=== PATIENT | female | born 1945 | race Caucasian/White ===

== ENCOUNTER 2020-10-26 17:47 | Inpatient (IN) | payer MEDICARE, SELFPAY ==
[2020-10-26 18:53] VITALS: BP 146/67; PULSE 69; TEMP 37.2; O2SAT 97
[2020-10-26 19:28] VITALS: BMI 21.9
--- NOTE | 2020-10-26 22:06 | PC.ADMIT ---
PT arrived to unit for first time by stretcher at 1800 from [facility] for [facility] using meds and disorganization. PT is A+O to self and place only. Medications and orders confirmed by AVELINA Mata. PT signed all legals and is Conditional Voluntary on 15 minute checks. PT calm and cooperative during admission assessment, poor memory at times. PT has large bruising to left side of face, stated, I fell down the wooden stairs at [employer]. PT oriented to staff and unit. PT is on antibiotic for UTI starting now. Also NO order to obtain another Urine for U/A.
[2020-10-26 22:32] VITALS: BP 112/56; PULSE 70
[2020-10-26] MEDS: Metoprolol Tartrate 25 MG TABLET PO (22:32)
[2020-10-26] MEDS: cephALEXin 500 MG CAPSULE PO (22:37)
[2020-10-26] MEDS: traZODone HCL 50 MG TABLET PO (22:37)
[2020-10-26] MEDS: Acetaminophen 325 MG TABLET 650 MG PO (22:38)
[2020-10-27] MEDS: Levothyroxine Sodium 50 MCG TABLET PO (05:57)
[2020-10-27 06:00] VITALS: BP 142/65; PULSE 74; RESP 16; TEMP 35; O2SAT 95
[2020-10-27 07:28] LABS: Cholesterol 141 mg/dL; HDL Cholesterol 37 mg/dL; LDL Cholesterol Calculated 85 mg/dl; Triglycerides 97 mg/dL
[2020-10-27 07:39] LABS: Estimated Average Glucose 100 mg/dL; Hemoglobin A1c % 5.1 %
[2020-10-27 07:42] LABS: Thyroid Stimulating Hormone 2.81 uIU/mL (0.32-4.0)
[2020-10-27 07:58] VITALS: BP 131/60; PULSE 72; RESP 16; TEMP 36.9; O2SAT 98
[2020-10-27 09:36] VITALS: BP 131/60; PULSE 72
[2020-10-27] MEDS: Aspirin Enteric Coated 81 MG TABLET.DR PO (09:36)
[2020-10-27] MEDS: Metoprolol Tartrate 25 MG TABLET PO ×2 (09:36→21:19)
[2020-10-27] MEDS: cephALEXin 500 MG CAPSULE PO ×4 (09:36→21:19)
[2020-10-27 10:12] LABS: Folate 5.1 ng/mL (> or = 4.0); Vitamin B12 < 146 pg/mL (200-900)
[2020-10-27 10:47] VITALS: BP 162/74; PULSE 57; O2SAT 97
--- NOTE | 2020-10-27 14:53 | HO.PSYADMNOT ---
HPI Chief Complaint: Adjustment disorder w/ mixed disturbance of emotio Sources of Information: patient interviewed, chart reviewed and crisis/core team assessment reviewed HPI Subjective Notes: Conditional Voluntary Narrative: The patient is a 75 year old female, , mother of 2 adult children, living with her with good social support. The patient was brought to the ED [facility] by the police and her . Apparently, she has been taking OTC and prescription medications, also the reported that she made suicidal statements and she was been more irritable and more disorganized. The patient suffers from dementia but recently, she has been more erratic, wandering and knocking on other's people homes and she had psychotic symptoms elicited by paranoia (people breaking into her home). During the intake interview, she couldn't remember why she was admitted. On the ED, she was found to have an UTI. She denied suicidal thoughts. She had an injury in her face, apparently, she fell several days ago. Past Psychiatric History: Denies prior psychiatric treatment. Medical Evaluation Reviewed: Yes PMF Family History: Denies Social History: The patient has been for more than 50 years, she has 2 adult children, lives with her who is her primary support system Substance History: Denies Trauma History: Denies Diagnostics Vital Signs (24Hr): Vital Signs - 24 hr 10/26/20 18:53 10/26/20 22:32 10/27/20 06:00 Temperature 99 F 95 F L Pulse Rate 69 70 74 Respiratory Rate 16 Blood Pressure 146/67 H 112/56 L 142/65 H Pulse Oximetry 97 95 10/27/20 07:58 10/27/20 09:36 10/27/20 10:47 Temperature 98.5 F Pulse Rate 72 72 57 Respiratory Rate 16 Blood Pressure 131/60 131/60 162/74 H Pulse Oximetry 98 97 Body Mass Index 21.9 Labs Labs: Laboratory Results - last 48 hr 10/27/20 10/27/20 10/27/20 06:40 06:40 06:40 Estimat Average Glucose 100 Hemoglobin A1c % 5.1 Triglycerides 97 Cholesterol 141 LDL Cholesterol, Calc 85 HDL Cholesterol 37 Vitamin B12 < 146 L Folate 5.1 TSH 2.81 Meds/Allergies Meds Home Medications Acetaminophen (Acetaminophen 325 Mg Tablet) 650 mg PO Q6H PRN PRN Reason: Headache/Pain Mild Scale (1-3) Last Admin: 10/26/20 22:38 Dose: 650 mg Documented by: Al Hydroxide/Mg Hydroxide (Magnesium Hydrox/Alum Hydrox 30 Ml Oral.Susp) 30 ml PO Q6H PRN PRN Reason: Heartburn/Nausea Aspirin (Aspirin Enteric Coated 81 Mg Tablet.Dr) 81 mg PO DAILY [facility] Last Admin: 10/28/20 08:00 Dose: 81 mg Documented by: Cephalexin HCl (Cephalexin 500 Mg Capsule) 500 mg PO QID [facility] Stop: 10/31/20 20:59 Last Admin: 10/28/20 13:44 Dose: 500 mg Documented by: Cyanocobalamin (Cyanocobalamin (Vitamin B-12) 1,000 Mcg Tablet) 1,000 mcg PO DAILY [facility] Last Admin: 10/28/20 08:01 Dose: 1,000 mcg Documented by: Hydroxyzine HCl (Hydroxyzine Hcl 25 Mg Tablet) 25 mg PO BEDTIME PRN PRN Reason: Anxiety Last Admin: 10/28/20 08:00 Dose: 25 mg Documented by: Levothyroxine Sodium (Levothyroxine Sodium 50 Mcg Tablet) 50 mcg PO DAILY@0600 [facility] Last Admin: 10/28/20 08:00 Dose: 50 mcg Documented by: Magnesium Hydroxide (Milk Of Magnesia 30 Ml Oral.Susp) 30 ml PO DAILY PRN PRN Reason: Constipation Metoprolol Tartrate (Metoprolol Tartrate 25 Mg Tablet) 25 mg PO BID [facility]; Protocol Last Admin: 10/28/20 08:00 Dose: 25 mg Documented by: Trazodone HCl (Trazodone Hcl 50 Mg Tablet) 50 mg PO BEDTIME PRN PRN Reason: Insomnia Last Admin: 10/26/20 22:37 Dose: 50 mg Documented by: Allergies Allergies Allergy/AdvReac Type Severity Reaction Status Date / Time No Known Allergies Allergy Verified 10/26/20 19:36 Mental Status Exam Mental Status Exam Patient Appearance: Disheveled Patient Orientation: Person Level of Consciousness: Awake Patient Behavior: Cooperative and Wandering Mood Description: Withdrawn and Depressed Affect Description: Constricted Patient Cognition Impaired: Yes Ability to Follow Directions: Good Speech Pattern: Clear Memory Description: Immediate Impaired Hallucinations: None Delusions: Paranoid Ideation Thought Process: Distracted, Evasive and Slowed Thinking Thought Content: positive for Circumstantial and positive for Poverty of Content Depressive Symptoms: Increased Anxiety Judgement: Poor Assessment & Plan Assessment & Plan (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 Plan: Gather collateral information. Continue with the same treatment. (2) Dementia associated with other underlying disease without behavioral disturbance: Status: Acute Code(s): F02.80 - Dementia in other diseases classified elsewhere without behavioral disturbance Patient educated on: diagnosis and medication risk/benefits Informed Consent: does not understand Reason for continued inpatient stay Substantial Risk for: harm to self, inability to function, rapid decompensation and med/psych decompensation
--- NOTE | 2020-10-27 14:56 | PM.IMCN ---
History of Present Illness Data of Consult Service Date: 10/27/20 Requesting physician: Tripp Roth Primary Care Provider: Unknown Physician HPI Reason for consult: Admission H&P This is a 75 yo F admitted to the [facility] unit. Medical services consulted for routine admission H&P Pt is seen and examined in her bed. [facility] staff in the room. Patient is a pleasant 75 yo F who denies any medical complaints and denies any medical history. Of note, patient has bruising on the L side of her her face, which she endorses is a few weeks old. She reported that she sustained a mechanical fall without any LOC. She denies any PMH, PSH or FH Review of Systems Review of Systems: denies any medical complaints PMFSH Social History Household Members: Spouse Housing: House Do you presently have visiting nurse or other home services: No Patient Tobacco Use Status: Never used Tobacco Smoked in Last 30 Days: No e-Cigarette/Vaping Use: Never Used Patient Interested in Nicotine Replacement: No Patient Given Instructions on How to Stop Smoking: No Second Hand Smoke Exposure: No Use of substances other than those prescribed or required for medical reasons: No Currently Displaying Signs/Symptoms of Drug Intoxication Withdrawal: No Any prior treatment program specific to substance use: No Have you been hit, kicked, punched, or otherwise hurt by someone within the past year? If so, by whom?: No Do you feel safe in your current relationship?: Yes Is there a partner from a previous relationship who is making you feel unsafe now?: No Are you made to feel afraid or neglected: No Rastafarian Healthcare Practices: Quaker Advance Directives: No Advance Directives Information Provided: Yes Do you have thoughts of harming others: None Do you have a plan to hurt others: No Plan Recently lost weight without trying: No How much weight loss: Not applicable Eating poorly because of decreased appetite: Yes Nutrition screen score: 1 Nutrition Risks: No Nutritional Risk Patient : No : No Poor oral hygiene: No service: No Sexual orientation: Straight/Heterosexual Meds Allergies Allergy/AdvReac Type Severity Reaction Status Date / Time No Known Allergies Allergy Verified 10/26/20 19:36 Active Medications: Current Medications Generic Name Dose Route Start Last Admin Trade Name Freq PRN Reason Stop Dose Admin Acetaminophen 650 mg 10/26/20 20:10 06/23/21 22:38 Acetaminophen 325 Mg Tablet PO 650 mg Q6H PRN Administration Headache/Pain Mild Scale (1-3) Al Hydroxide/Mg Hydroxide 30 ml 10/26/20 20:10 Magnesium Hydrox/Alum Hydrox 30 Ml Oral.Susp PO Q6H PRN Heartburn/Nausea Aspirin 81 mg 10/27/20 09:00 10/27/20 09:36 Aspirin Enteric Coated 81 Mg Tablet.Dr PO 81 mg DAILY [facility] Administration Cephalexin HCl 500 mg 10/26/20 21:00 10/27/20 13:26 Cephalexin 500 Mg Capsule PO 10/31/20 20:59 500 mg QID [facility] Administration Hydroxyzine HCl 25 mg 10/26/20 20:10 Hydroxyzine Hcl 25 Mg Tablet PO BEDTIME PRN Anxiety Levothyroxine Sodium 50 mcg 10/27/20 06:00 10/27/20 05:57 Levothyroxine Sodium 50 Mcg Tablet PO 50 mcg DAILY@0600 [facility] Administration Magnesium Hydroxide 30 ml 10/26/20 20:10 Milk Of Magnesia 30 Ml Oral.Susp PO DAILY PRN Constipation Metoprolol Tartrate 25 mg 10/26/20 21:00 10/27/20 09:36 Metoprolol Tartrate 25 Mg Tablet PO 25 mg BID [facility] Administration Protocol Trazodone HCl 50 mg 10/26/20 20:10 10/26/20 22:37 Trazodone Hcl 50 Mg Tablet PO 50 mg BEDTIME PRN Administration Insomnia Physical Exam Vital Signs and Narrative: Vital Signs: Last Vital Signs Temp 98.5 F 10/27/20 07:58 Pulse 57 10/27/20 10:47 Resp 16 10/27/20 07:58 BP 162/74 H 10/27/20 10:47 Pulse Ox 97 10/27/20 10:47 Body Mass Index 21.9 Const: Other: General - no acute distress, appears comfortable Cardiovascular - regular rate and rhythm, S1-S2 Lungs - normal respiratory effort, clear to auscultation bilaterally, no wheezing Abdomen - soft, nontender, no rebound or guarding Extremities - no edema bilaterally Neuro - awake and alert, no focal deficits SKin - bruising in different stages on L-side face, no bony tenderness Results Labs Labs: Laboratory Results - last 24 hr 10/27/20 10/27/20 10/27/20 06:40 06:40 06:40 Estimat Average Glucose 100 Hemoglobin A1c % 5.1 Triglycerides 97 Cholesterol 141 LDL Cholesterol, Calc 85 HDL Cholesterol 37 Vitamin B12 < 146 L Folate 5.1 TSH 2.81 Assessment and Plan (1) Routine medical exam: Status: Acute (2) Patient denies medical problems: Status: Acute This is a 75 yo F who endorses no significant PMH. She is admitted to the [facility] unit. She endorses no chronic medical issues. Of note, she does have a low B12 level. Will replete with oral. Additionally she does have variable blood pressures. At this time, would observe BP trend and if persistantly over 140-150/90, may consider initiation of antihypertensives. Please reconsult if needed.
[2020-10-27 15:05] VITALS: BMI 25.1
[2020-10-27 19:09] LABS: Amphetamine Screen Urine Not Detected (Not Detect); Barbiturates, Urine Not Detected (Not Detect); Benzodiazepines Screen Urine Not Detected (Not Detect); Cannabinoid Screen Urine Not Detected (Not Detect); Cocaine Screen Urine Not Detected (Not Detect); Opiate Screen Urine Not Detected (Not Detect); Phencyclidine Screen Urine Not Detected (Not Detect)
[2020-10-27 19:49] VITALS: BP 133/60; PULSE 71; RESP 16; TEMP 36.4; O2SAT 93
[2020-10-27 21:19] VITALS: BP 117/60; PULSE 96
[2020-10-27] MEDS: hydrOXYzine HCL 25 MG TABLET PO (21:19)
[2020-10-28] MEDS: Metoprolol Tartrate 25 MG TABLET PO ×2 (08:00→21:44)
[2020-10-28] MEDS: hydrOXYzine HCL 25 MG TABLET PO (08:00)
[2020-10-28] MEDS: Aspirin Enteric Coated 81 MG TABLET.DR PO (08:00)
[2020-10-28] MEDS: Levothyroxine Sodium 50 MCG TABLET PO (08:00)
[2020-10-28] MEDS: cephALEXin 500 MG CAPSULE PO ×4 (08:01→21:44)
[2020-10-28] MEDS: Cyanocobalamin (Vitamin B-12) 1,000 MCG TABLET 1000 MCG PO (08:01)
--- NOTE | 2020-10-28 13:49 | HO.PSYCHPN ---
Subjective Subjective Date of Service: 10/28/20 Reason For Visit: Adjustment disorder w/ mixed disturbance of emotio Subjective Notes: Conditional Voluntary Interim History: The patient remains most of the time in her room, she denies paranoia or auditory hallucinations. On bloodwork, she came back with a low level of Vitamin B12 and it was started treatment; also her last U/A was negative. She looks pleasantly confused. Medication Compliance: Yes Side effects from medications: No Review of Systems Acute medical concerns: No Medical Review of Systems: unchanged Mental Status Exam Mental Status Exam Patient Appearance: Disheveled and Unkempt Patient Orientation: Person and Situation Level of Consciousness: Awake Patient Behavior: Cooperative, Distractible and Confused Mood Description: Withdrawn Affect Description: Labile Patient Cognition Impaired: Yes Ability to Follow Directions: Good Speech Pattern: Clear Memory Description: Immediate Impaired Hallucinations: None Delusions: Paranoid Ideation Thought Process: Distracted and Evasive Thought Content: positive for Poverty of Content and positive for Loose Associations Judgement: Poor Diagnostics Vital Signs (24Hr): Vital Signs - 24 hr 10/27/20 19:49 10/27/20 21:19 Temperature 97.6 F Pulse Rate 71 96 Respiratory Rate 16 Blood Pressure 133/60 117/60 Pulse Oximetry 93 Body Mass Index 25.1 Labs Labs: Laboratory Results - last 48 hr 10/27/20 10/27/20 10/27/20 06:40 06:40 06:40 Estimat Average Glucose 100 Hemoglobin A1c % 5.1 Triglycerides 97 Cholesterol 141 LDL Cholesterol, Calc 85 HDL Cholesterol 37 Vitamin B12 < 146 L Folate 5.1 TSH 2.81 Urine Opiates Screen Ur Barbiturates Screen Ur Phencyclidine Scrn Ur Amphetamines Screen U Benzodiazepines Scrn Urine Cocaine Screen U Marijuana (THC) Screen 10/27/20 09:31 Estimat Average Glucose Hemoglobin A1c % Triglycerides Cholesterol LDL Cholesterol, Calc HDL Cholesterol Vitamin B12 Folate TSH Urine Opiates Screen Not Detected Ur Barbiturates Screen Not Detected Ur Phencyclidine Scrn Not Detected Ur Amphetamines Screen Not Detected U Benzodiazepines Scrn Not Detected Urine Cocaine Screen Not Detected U Marijuana (THC) Screen Not Detected Medications Medications Current Medications Generic Name Dose Route Start Last Admin Trade Name Freq PRN Reason Stop Dose Admin Acetaminophen 650 mg 10/26/20 20:10 10/26/20 22:38 Acetaminophen 325 Mg Tablet PO 650 mg Q6H PRN Administration Headache/Pain Mild Scale (1-3) Al Hydroxide/Mg Hydroxide 30 ml 10/26/20 20:10 Magnesium Hydrox/Alum Hydrox 30 Ml Oral.Susp PO Q6H PRN Heartburn/Nausea Aspirin 81 mg 10/27/20 09:00 10/28/20 08:00 Aspirin Enteric Coated 81 Mg Tablet.Dr PO 81 mg DAILY [facility] Administration Cephalexin HCl 500 mg 10/26/20 21:00 10/28/20 13:44 Cephalexin 500 Mg Capsule PO 10/31/20 20:59 500 mg QID [facility] Administration Cyanocobalamin 1,000 mcg 10/28/20 09:00 10/28/20 08:01 Cyanocobalamin (Vitamin B-12) 1,000 Mcg Tablet PO 1,000 mcg DAILY [facility] Administration Hydroxyzine HCl 25 mg 10/26/20 20:10 10/28/20 08:00 Hydroxyzine Hcl 25 Mg Tablet PO 25 mg BEDTIME PRN Administration Anxiety Levothyroxine Sodium 50 mcg 10/27/20 06:00 10/28/20 08:00 Levothyroxine Sodium 50 Mcg Tablet PO 50 mcg DAILY@0600 [facility] Administration Magnesium Hydroxide 30 ml 10/26/20 20:10 Milk Of Magnesia 30 Ml Oral.Susp PO DAILY PRN Constipation Metoprolol Tartrate 25 mg 10/26/20 21:00 10/28/20 08:00 Metoprolol Tartrate 25 Mg Tablet PO 25 mg BID [facility] Administration Protocol Trazodone HCl 50 mg 10/26/20 20:10 10/26/20 22:37 Trazodone Hcl 50 Mg Tablet PO 50 mg BEDTIME PRN Administration Insomnia Allergies Allergies Allergy/AdvReac Type Severity Reaction Status Date / Time No Known Allergies Allergy Verified 10/26/20 19:36 Assessment & Plan Assessment & Plan (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 Plan: Gather collateral information. Continue with the same treatment. (2) Dementia associated with other underlying disease with behavioral disturbance: Status: Acute Code(s): F02.81 - Dementia in other diseases classified elsewhere with behavioral disturbance Assessment and Plan: Plan: Add Aricept 5 mg po qhs Continue Vitamin B12 Greater than 50% of the session was spent on counseling and/or coordination of care Reason for contiued inpatient stay Substantial Risk for: inability to function, rapid decompensation and med/psych decompensation
[2020-10-28 21:44] VITALS: BP 135/76; PULSE 76
[2020-10-28] MEDS: Donepezil HCl 5 MG TABLET PO (21:45)
[2020-10-29 06:00] VITALS: BP 111/59; PULSE 64; RESP 16; TEMP 36.6; O2SAT 97
[2020-10-29] MEDS: Levothyroxine Sodium 50 MCG TABLET PO (06:34)
[2020-10-29 08:27] VITALS: BP 111/59; PULSE 64
[2020-10-29] MEDS: Aspirin Enteric Coated 81 MG TABLET.DR PO (08:27)
[2020-10-29] MEDS: Metoprolol Tartrate 25 MG TABLET PO ×2 (08:27→20:35)
[2020-10-29] MEDS: Cyanocobalamin (Vitamin B-12) 1,000 MCG TABLET 1000 MCG PO (08:27)
[2020-10-29] MEDS: cephALEXin 500 MG CAPSULE PO ×3 (08:27→17:55)
--- NOTE | 2020-10-29 12:06 | P.PNPSI_ITS ---
Subjective Subjective Date of Service: 10/30/20 Reason For Visit: Adjustment disorder w/ mixed disturbance of emotio Interim History: Pt describes mood as horrible. She reports her trying to take her house away from her, She also reports she has been working all along, which is not the case. She was confused as to her maiden last name as she reported her family are from [place]. Later she was able to tell this leader writer that this is her name. Pt perseverates on going home today. She denies SI but states her life is upside down. Not oriented to year, place, month or situation.No behavioral concerns. She does need a lot of prompting to complete ADLs and eat as she would not initiate these activities on her own due to cognitive impairments. Review of Systems Review of Systems denies any medical complaints Yes all other systems are reviewed and are negative Mental Status Exam Mental Status Exam Narrative: Appearance: brusies on face, casually groomed, poor hygiene, in NAD Behavior: frustrated Psychomotor: no agitation or retardation noted Speech: clear, normal rate/rhythm/volume, spontaneous TP: derailment noted TC: thinking her trying to take home away from her Mood: horrible Affect:anxious, confused SI:passive no plan or intent HI:none AH/VH:none Delusions:suspicious about but this may be due to memory problems more than psychosis Insight/judgment:impaired x 2. Memory/cog: alert, Not oriented to month, year, place nor situation. severely impaired but not formally tested. Diagnostics Vital Signs (24Hr): Vital Signs - 24 hr 10/29/20 17:48 10/29/20 20:35 10/30/20 06:00 Temperature 98.0 F 97.9 F Pulse Rate 69 66 58 Respiratory Rate 18 Blood Pressure 130/58 L 153/70 H 137/64 Pulse Oximetry 96 96 Body Mass Index 25.1 Medications Medications Current Medications Generic Name Dose Route Start Last Admin Trade Name Freq PRN Reason Stop Dose Admin Acetaminophen 650 mg 10/26/20 20:10 10/30/20 03:44 Acetaminophen 325 Mg Tablet PO 650 mg Q6H PRN Administration Headache/Pain Mild Scale (1-3) Al Hydroxide/Mg Hydroxide 30 ml 10/26/20 20:10 Magnesium Hydrox/Alum Hydrox 30 Ml Oral.Susp PO Q6H PRN Heartburn/Nausea Aspirin 81 mg 10/27/20 09:00 10/30/20 08:22 Aspirin Enteric Coated 81 Mg Tablet.Dr PO 81 mg DAILY [facility] Administration Cephalexin HCl 500 mg 10/26/20 21:00 10/30/20 10:27 Cephalexin 500 Mg Capsule PO 10/31/20 20:59 Not Given QID [facility] Cyanocobalamin 1,000 mcg 10/28/20 09:00 10/30/20 08:22 Cyanocobalamin (Vitamin B-12) 1,000 Mcg Tablet PO 1,000 mcg DAILY [facility] Administration Donepezil HCl 5 mg 10/28/20 21:00 10/29/20 20:35 Donepezil Hcl 5 Mg Tablet PO 5 mg BEDTIME [facility] Administration Hydroxyzine HCl 25 mg 10/26/20 20:10 10/28/20 08:00 Hydroxyzine Hcl 25 Mg Tablet PO 25 mg BEDTIME PRN Administration Anxiety Levothyroxine Sodium 50 mcg 10/27/20 06:00 10/30/20 05:40 Levothyroxine Sodium 50 Mcg Tablet PO 50 mcg DAILY@0600 [facility] Administration Magnesium Hydroxide 30 ml 10/26/20 20:10 Milk Of Magnesia 30 Ml Oral.Susp PO DAILY PRN Constipation Metoprolol Tartrate 25 mg 10/26/20 21:00 10/30/20 08:22 Metoprolol Tartrate 25 Mg Tablet PO 25 mg BID [facility] Administration Protocol Trazodone HCl 50 mg 10/26/20 20:10 10/26/20 22:37 Trazodone Hcl 50 Mg Tablet PO 50 mg BEDTIME PRN Administration Insomnia Allergies Allergies Allergy/AdvReac Type Severity Reaction Status Date / Time No Known Allergies Allergy Verified 10/26/20 19:36 Assessment & Plan Assessment & Plan (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 Plan: Gather collateral information. Continue with the same treatment. (2) Dementia associated with other underlying disease with behavioral disturbance: Status: Acute Code(s): F02.81 - Dementia in other diseases classified elsewhere with behavioral disturbance Assessment and Plan: Plan: continue per treatment team Add Aricept 5 mg po qhs Continue Vitamin B12 Greater than 50% of the session was spent on counseling and/or coordination of care Reason for contiued inpatient stay Substantial Risk for: inability to function
[2020-10-29 17:48] VITALS: BP 130/58; PULSE 69; TEMP 36.7; O2SAT 96
--- NOTE | 2020-10-29 18:19 | PC.NURSE ---
Patient had wound consult for toenail on L foot which was falling off. Nail is off and wound bed is dry. Skin intact. Patient refused dressing to be put on as ordered.
[2020-10-29 20:35] VITALS: BP 153/70; PULSE 66
[2020-10-29] MEDS: Donepezil HCl 5 MG TABLET PO (20:35)
[2020-10-30] MEDS: Acetaminophen 325 MG TABLET 650 MG PO (03:44)
[2020-10-30] MEDS: Levothyroxine Sodium 50 MCG TABLET PO (05:40)
[2020-10-30 06:00] VITALS: BP 137/64; PULSE 58; RESP 18; TEMP 36.6; O2SAT 96
[2020-10-30] MEDS: Aspirin Enteric Coated 81 MG TABLET.DR PO (08:22)
[2020-10-30] MEDS: Metoprolol Tartrate 25 MG TABLET PO ×2 (08:22→19:49)
[2020-10-30] MEDS: Cyanocobalamin (Vitamin B-12) 1,000 MCG TABLET 1000 MCG PO (08:22)
--- NOTE | 2020-10-30 12:11 | P.PNPSI_ITS ---
Subjective Subjective Date of Service: 10/30/20 Reason For Visit: Adjustment disorder w/ mixed disturbance of emotio Interim History: Pt reports feeling frustrated, continues to report that her trying to take her house away from her. She also reports she has been working all along, which is not the case. Pt tells this curriculum writer that she is going home today- that plans to walk to [place], does not know where she is but states that's okay I can walk, I am willing to walk . She denies SI but states her life is upside down. Not oriented to year, place, month or situation.No behavioral concerns. She does need a lot of prompting to complete ADLs and eat as she would not initiate these activities on her own due to cognitive impairments. Review of Systems Review of Systems denies any medical complaints Yes all other systems are reviewed and are negative Mental Status Exam Mental Status Exam Narrative: Appearance: brusies on face, casually groomed, poor hygiene, in NAD Behavior: frustrated Psychomotor: no agitation or retardation noted Speech: clear, normal rate/rhythm/volume, spontaneous TP: derailment noted TC: thinking her trying to take home away from her Mood: horrible Affect:anxious, confused SI:passive no plan or intent HI:none AH/VH:none Delusions:suspicious about but this may be due to memory problems more than psychosis Insight/judgment:impaired x 2. Memory/cog: alert, Not oriented to month, year, place nor situation. severely impaired but not formally tested. Diagnostics Vital Signs (24Hr): Vital Signs - 24 hr 10/29/20 17:48 10/29/20 20:35 10/30/20 06:00 Temperature 98.0 F 97.9 F Pulse Rate 69 66 58 Respiratory Rate 18 Blood Pressure 130/58 L 153/70 H 137/64 Pulse Oximetry 96 96 Body Mass Index 25.1 Medications Medications Current Medications Generic Name Dose Route Start Last Admin Trade Name Freq PRN Reason Stop Dose Admin Acetaminophen 650 mg 10/26/20 20:10 10/30/20 03:44 Acetaminophen 325 Mg Tablet PO 650 mg Q6H PRN Administration Headache/Pain Mild Scale (1-3) Al Hydroxide/Mg Hydroxide 30 ml 10/26/20 20:10 Magnesium Hydrox/Alum Hydrox 30 Ml Oral.Susp PO Q6H PRN Heartburn/Nausea Aspirin 81 mg 10/27/20 09:00 10/30/20 08:22 Aspirin Enteric Coated 81 Mg Tablet.Dr PO 81 mg DAILY SILAS Administration Cephalexin HCl 500 mg 10/26/20 21:00 10/30/20 10:27 Cephalexin 500 Mg Capsule PO 10/31/20 20:59 Not Given QID SILAS Cyanocobalamin 1,000 mcg 10/28/20 09:00 10/30/20 08:22 Cyanocobalamin (Vitamin B-12) 1,000 Mcg Tablet PO 1,000 mcg DAILY SILAS Administration Donepezil HCl 5 mg 10/28/20 21:00 10/29/20 20:35 Donepezil Hcl 5 Mg Tablet PO 5 mg BEDTIME SLIAS Administration Hydroxyzine HCl 25 mg 10/26/20 20:10 10/28/20 08:00 Hydroxyzine Hcl 25 Mg Tablet PO 25 mg BEDTIME PRN Administration Anxiety Levothyroxine Sodium 50 mcg 10/27/20 06:00 10/30/20 05:40 Levothyroxine Sodium 50 Mcg Tablet PO 50 mcg DAILY@0600 [facility] Administration Magnesium Hydroxide 30 ml 10/26/20 20:10 Milk Of Magnesia 30 Ml Oral.Susp PO DAILY PRN Constipation Metoprolol Tartrate 25 mg 10/26/20 21:00 10/30/20 08:22 Metoprolol Tartrate 25 Mg Tablet PO 25 mg BID SILAS Administration Protocol Trazodone HCl 50 mg 10/26/20 20:10 10/26/20 22:37 Trazodone Hcl 50 Mg Tablet PO 50 mg BEDTIME PRN Administration Insomnia Allergies Allergies Allergy/AdvReac Type Severity Reaction Status Date / Time No Known Allergies Allergy Verified 10/26/20 19:36 Assessment & Plan Assessment & Plan (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 Plan: Gather collateral information. Continue with the same treatment. (2) Dementia associated with other underlying disease with behavioral disturbance: Status: Acute Code(s): F02.81 - Dementia in other diseases classified elsewhere with behavioral disturbance Assessment and Plan: Plan: continue per treatment team Add Aricept 5 mg po qhs Continue Vitamin B12 Greater than 50% of the session was spent on counseling and/or coordination of care Reason for contiued inpatient stay Substantial Risk for: inability to function
[2020-10-30 18:00] VITALS: BP 129/58; PULSE 61; TEMP 36.6; O2SAT 97
[2020-10-30 19:49] VITALS: BP 135/62; PULSE 68
[2020-10-30] MEDS: Donepezil HCl 5 MG TABLET PO (19:49)
[2020-10-30] MEDS: traZODone HCL 50 MG TABLET PO (19:49)
[2020-10-30] MEDS: hydrOXYzine HCL 25 MG TABLET PO (19:49)
[2020-10-31] MEDS: Acetaminophen 325 MG TABLET 650 MG PO (03:27)
[2020-10-31 08:18] VITALS: BP 125/60; PULSE 71; RESP 18; TEMP 36.8; O2SAT 96
[2020-10-31 08:22] VITALS: BP 125/60; PULSE 71
[2020-10-31] MEDS: Metoprolol Tartrate 25 MG TABLET PO ×2 (08:22→20:06)
[2020-10-31] MEDS: Cyanocobalamin (Vitamin B-12) 1,000 MCG TABLET 1000 MCG PO (08:22)
[2020-10-31] MEDS: cephALEXin 500 MG CAPSULE PO ×3 (08:22→17:02)
[2020-10-31] MEDS: Aspirin Enteric Coated 81 MG TABLET.DR PO (08:22)
[2020-10-31] MEDS: Levothyroxine Sodium 50 MCG TABLET PO (08:22)
--- NOTE | 2020-10-31 12:43 | P.PNPSI_ITS ---
Subjective Subjective Date of Service: 10/31/20 Reason For Visit: Adjustment disorder w/ mixed disturbance of emotio Interim History: The patient remains pleasantly confused. Adult Protective Services has been contacted. Over the weekend, she believed that she was in a hotel on [place] . SW has tried to contact her several times and so far, no contact yet. We started Aricept last week, so far, no side effects. WE will increase it today Medication Compliance: Yes Review of Systems Review of Systems Yes all other systems are reviewed and are negative Mental Status Exam Mental Status Exam Patient Appearance: Disheveled Patient Orientation: Person Level of Consciousness: Awake Patient Behavior: Cooperative Mood Description: Withdrawn Affect Description: Constricted Patient Cognition Impaired: Yes Ability to Follow Directions: Good Speech Pattern: Clear Memory Description: Immediate Impaired, Episodic Impaired and Semantic Impaired Hallucinations: None Delusions: Not Present Thought Process: Distracted Thought Content: positive for Poverty of Content Judgement: Poor Diagnostics Vital Signs (24Hr): Vital Signs - 24 hr 10/30/20 18:00 10/30/20 19:49 10/31/20 08:18 Temperature 97.9 F 98.3 F Pulse Rate 61 68 71 Respiratory Rate 18 Blood Pressure 129/58 L 135/62 125/60 Pulse Oximetry 97 96 10/31/20 08:22 Temperature Pulse Rate 71 Respiratory Rate Blood Pressure 125/60 Pulse Oximetry Body Mass Index 25.1 Medications Medications Current Medications Generic Name Dose Route Start Last Admin Trade Name Freq PRN Reason Stop Dose Admin Acetaminophen 650 mg 10/26/20 20:10 10/31/20 03:27 Acetaminophen 325 Mg Tablet PO 650 mg Q6H PRN Administration Headache/Pain Mild Scale (1-3) Al Hydroxide/Mg Hydroxide 30 ml 10/26/20 20:10 Magnesium Hydrox/Alum Hydrox 30 Ml Oral.Susp PO Q6H PRN Heartburn/Nausea Aspirin 81 mg 10/27/20 09:00 10/31/20 08:22 Aspirin Enteric Coated 81 Mg Tablet. PO 81 mg DAILY SILAS Administration Cephalexin HCl 500 mg 10/26/20 21:00 10/31/20 12:37 Cephalexin 500 Mg Capsule PO 10/31/20 20:59 500 mg QID SILAS Administration Cyanocobalamin 1,000 mcg 10/28/20 09:00 10/31/20 08:22 Cyanocobalamin (Vitamin B-12) 1,000 Mcg Tablet PO 1,000 mcg DAILY SILAS Administration Donepezil HCl 10 mg 10/31/20 21:00 Donepezil Hcl 5 Mg Tablet PO BEDTIME SILAS Hydroxyzine HCl 25 mg 10/26/20 20:10 10/30/20 19:49 Hydroxyzine Hcl 25 Mg Tablet PO 25 mg BEDTIME PRN Administration Anxiety Levothyroxine Sodium 50 mcg 10/27/20 06:00 10/31/20 08:22 Levothyroxine Sodium 50 Mcg Tablet PO 50 mcg DAILY@0600 SILAS Administration Magnesium Hydroxide 30 ml 10/26/20 20:10 Milk Of Magnesia 30 Ml Oral.Susp PO DAILY PRN Constipation Metoprolol Tartrate 25 mg 10/26/20 21:00 10/31/20 08:22 Metoprolol Tartrate 25 Mg Tablet PO 25 mg BID SILAS Administration Protocol Trazodone HCl 50 mg 10/26/20 20:10 10/30/20 19:49 Trazodone Hcl 50 Mg Tablet PO 50 mg BEDTIME PRN Administration Insomnia Allergies Allergies Allergy/AdvReac Type Severity Reaction Status Date / Time No Known Allergies Allergy Verified 10/26/20 19:36 Assessment & Plan Assessment & Plan (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 Plan: Gather collateral information. Continue with the same treatment. (2) Dementia associated with other underlying disease with behavioral disturbance: Status: Acute Code(s): F02.81 - Dementia in other diseases classified elsewhere with behavioral disturbance Assessment and Plan: Plan: continue per treatment team Increase Aricept up to 10 mg po qhs Continue Vitamin B12 Greater than 50% of the session was spent on counseling and/or coordination of care Reason for contiued inpatient stay Substantial Risk for: inability to function, rapid decompensation and med/psych decompensation
[2020-10-31 19:26] VITALS: BP 117/53; PULSE 66; RESP 16; TEMP 36.8; O2SAT 97
[2020-10-31 20:06] VITALS: BP 130/60; PULSE 64
[2020-10-31] MEDS: hydrOXYzine HCL 25 MG TABLET PO (20:06)
[2020-10-31] MEDS: Donepezil HCl 5 MG TABLET 10 MG PO (20:06)
[2020-10-31] MEDS: traZODone HCL 50 MG TABLET PO (20:07)
[2020-11-01 06:00] VITALS: BP 130/61; PULSE 65; RESP 16; TEMP 36.5; O2SAT 97
[2020-11-01] MEDS: Levothyroxine Sodium 50 MCG TABLET PO (06:15)
[2020-11-01] MEDS: Cyanocobalamin (Vitamin B-12) 1,000 MCG TABLET 1000 MCG PO (09:35)
[2020-11-01] MEDS: Aspirin Enteric Coated 81 MG TABLET.DR PO (09:35)
[2020-11-01 09:42] VITALS: BP 115/56; PULSE 65
--- NOTE | 2020-11-01 11:34 | HO.PSYCHPN ---
Subjective Subjective Date of Service: 11/01/20 Reason For Visit: Adjustment disorder w/ mixed disturbance of emotio Interim History: The patient has been disoriented and confused at times but easily redirected. Her states that he can take care of her at home but she has been worse for the last months. Adult Protective Services is aware of her case now. Mental Status Exam Mental Status Exam Patient Appearance: Disheveled and Unkempt Patient Orientation: Person and Place Level of Consciousness: Awake Patient Behavior: Cooperative and Passive Mood Description: Withdrawn Affect Description: Constricted Patient Cognition Impaired: Yes Ability to Follow Directions: Good Speech Pattern: Clear Hallucinations: None Delusions: Not Present Thought Process: Evasive Thought Content: positive for Poverty of Content Judgement: Fair Diagnostics Vital Signs (24Hr): Vital Signs - 24 hr 10/31/20 19:26 10/31/20 20:06 11/01/20 06:00 Temperature 98.2 F 97.7 F Pulse Rate 66 64 65 Respiratory Rate 16 16 Blood Pressure 117/53 L 130/60 130/61 Pulse Oximetry 97 97 11/01/20 09:42 Temperature Pulse Rate 65 Respiratory Rate Blood Pressure 115/56 L Pulse Oximetry Body Mass Index 25.1 Medications Medications Current Medications Generic Name Dose Route Start Last Admin Trade Name Freq PRN Reason Stop Dose Admin Acetaminophen 650 mg 10/26/20 20:10 10/31/20 03:27 Acetaminophen 325 Mg Tablet PO 650 mg Q6H PRN Administration Headache/Pain Mild Scale (1-3) Al Hydroxide/Mg Hydroxide 30 ml 10/26/20 20:10 Magnesium Hydrox/Alum Hydrox 30 Ml Oral.Susp PO Q6H PRN Heartburn/Nausea Aspirin 81 mg 10/27/20 09:00 11/01/20 09:35 Aspirin Enteric Coated 81 Mg Tablet. PO 81 mg DAILY SILAS Administration Cyanocobalamin 1,000 mcg 10/28/20 09:00 11/01/20 09:35 Cyanocobalamin (Vitamin B-12) 1,000 Mcg Tablet PO 1,000 mcg DAILY SILAS Administration Donepezil HCl 10 mg 10/31/20 21:00 10/31/20 20:06 Donepezil Hcl 5 Mg Tablet PO 10 mg BEDTIME SILAS Administration Hydroxyzine HCl 25 mg 10/26/20 20:10 10/31/20 20:06 Hydroxyzine Hcl 25 Mg Tablet PO 25 mg BEDTIME PRN Administration Anxiety Levothyroxine Sodium 50 mcg 10/27/20 06:00 11/01/20 06:15 Levothyroxine Sodium 50 Mcg Tablet PO 50 mcg DAILY@0600 SIL[facility] Administration Magnesium Hydroxide 30 ml 10/26/20 20:10 Milk Of Magnesia 30 Ml Oral.Susp PO DAILY PRN Constipation Metoprolol Tartrate 25 mg 10/26/20 21:00 11/01/20 09:42 Metoprolol Tartrate 25 Mg Tablet PO Not Given BID [facility] Protocol Trazodone HCl 50 mg 10/26/20 20:10 10/31/20 20:07 Trazodone Hcl 50 Mg Tablet PO 50 mg BEDTIME PRN Administration Insomnia Allergies Allergies Allergy/AdvReac Type Severity Reaction Status Date / Time No Known Allergies Allergy Verified 10/26/20 19:36 Assessment & Plan Assessment & Plan (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 Plan: Gather collateral information. Continue with the same treatment. (2) Dementia associated with other underlying disease with behavioral disturbance: Status: Acute Code(s): F02.81 - Dementia in other diseases classified elsewhere with behavioral disturbance Assessment and Plan: Plan: continue per treatment team Continue Aricept 10 mg po qhs Continue Vitamin B12 Start Namenda 5 mg po bid Tomorrow AM Vitamin B12 level Greater than 50% of the session was spent on counseling and/or coordination of care Reason for contiued inpatient stay Substantial Risk for: inability to function, rapid decompensation and med/psych decompensation
[2020-11-01 18:00] VITALS: BP 114/54; PULSE 69; RESP 16; TEMP 36.9; O2SAT 98
[2020-11-01] MEDS: Acetaminophen 325 MG TABLET 650 MG PO (18:24)
[2020-11-01 20:06] VITALS: BP 120/56; PULSE 66
[2020-11-01] MEDS: Metoprolol Tartrate 25 MG TABLET PO (20:06)
[2020-11-01] MEDS: Donepezil HCl 5 MG TABLET 10 MG PO (20:06)
[2020-11-01] MEDS: hydrOXYzine HCL 25 MG TABLET PO (20:07)
[2020-11-01] MEDS: traZODone HCL 50 MG TABLET PO (20:07)
[2020-11-02] MEDS: Levothyroxine Sodium 50 MCG TABLET PO (05:44)
[2020-11-02 05:48] VITALS: BP 141/65; PULSE 60; RESP 16; TEMP 37.1; O2SAT 98
[2020-11-02 08:09] LABS: Vitamin B12 231 pg/mL (200-900)
[2020-11-02 08:15] VITALS: BP 107/60; PULSE 70
[2020-11-02] MEDS: Memantine HCl 5 MG TABLET PO (08:15)
[2020-11-02] MEDS: Metoprolol Tartrate 25 MG TABLET PO ×2 (08:15→19:54)
[2020-11-02] MEDS: Cyanocobalamin (Vitamin B-12) 1,000 MCG TABLET 1000 MCG PO (08:15)
[2020-11-02] MEDS: Aspirin Enteric Coated 81 MG TABLET.DR PO (08:15)
[2020-11-02] MEDS: Acetaminophen 325 MG TABLET 650 MG PO (08:22)
--- NOTE | 2020-11-02 11:08 | HO.PSYCHPN ---
Subjective Subjective Date of Service: 11/02/20 Reason For Visit: Adjustment disorder w/ mixed disturbance of emotio Interim History: The patient remains confused at times, she stated that she is not doing very well but she was unable to elaborate. Her Vitamin B12 is now normal but her cognition has not improved. Mental Status Exam Mental Status Exam Patient Appearance: Disheveled Patient Orientation: Person Level of Consciousness: Awake and Appropriate Patient Behavior: Cooperative Mood Description: Calm Affect Description: Constricted Speech Pattern: Clear Memory Description: Immediate Impaired and Recent Impaired Hallucinations: None Delusions: Not Present Thought Process: Slowed Thinking Thought Content: positive for Poverty of Content Judgement: Fair Diagnostics Vital Signs (24Hr): Vital Signs - 24 hr 11/01/20 18:00 11/01/20 20:06 11/02/20 05:48 Temperature 98.5 F 98.7 F Pulse Rate 69 66 60 Respiratory Rate 16 16 Blood Pressure 114/54 L 120/56 L 141/65 H Pulse Oximetry 98 98 11/02/20 08:15 Temperature Pulse Rate 70 Respiratory Rate Blood Pressure 107/60 Pulse Oximetry Body Mass Index 25.1 Labs Labs: Laboratory Results - last 48 hr 11/02/20 06:42 Vitamin B12 231 Medications Medications Current Medications Generic Name Dose Route Start Last Admin Trade Name Freq PRN Reason Stop Dose Admin Acetaminophen 650 mg 10/26/20 20:10 11/02/20 08:22 Acetaminophen 325 Mg Tablet PO 650 mg Q6H PRN Administration Headache/Pain Mild Scale (1-3) Al Hydroxide/Mg Hydroxide 30 ml 10/26/20 20:10 Magnesium Hydrox/Alum Hydrox 30 Ml Oral.Susp PO Q6H PRN Heartburn/Nausea Aspirin 81 mg 10/27/20 09:00 11/02/20 08:15 Aspirin Enteric Coated 81 Mg Tablet. PO 81 mg DAILY SILAS Administration Cyanocobalamin 1,000 mcg 10/28/20 09:00 11/02/20 08:15 Cyanocobalamin (Vitamin B-12) 1,000 Mcg Tablet PO 1,000 mcg DAILY SILAS Administration Donepezil HCl 10 mg 10/31/20 21:00 11/01/20 20:06 Donepezil Hcl 5 Mg Tablet PO 10 mg BEDTIME SILAS Administration Hydroxyzine HCl 25 mg 10/26/20 20:10 11/01/20 20:07 Hydroxyzine Hcl 25 Mg Tablet PO 25 mg BEDTIME PRN Administration Anxiety Levothyroxine Sodium 50 mcg 10/27/20 06:00 11/02/20 05:44 Levothyroxine Sodium 50 Mcg Tablet PO 50 mcg DAILY@0600 SILAS Administration Magnesium Hydroxide 30 ml 10/26/20 20:10 Milk Of Magnesia 30 Ml Oral.Susp PO DAILY PRN Constipation Memantine 5 mg 11/02/20 09:00 11/02/20 08:15 Memantine Hcl 5 Mg Tablet PO 5 mg DAILY SILAS Administration Metoprolol Tartrate 25 mg 10/26/20 21:00 11/02/20 08:15 Metoprolol Tartrate 25 Mg Tablet PO 25 mg BID SILAS Administration Protocol Trazodone HCl 50 mg 10/26/20 20:10 11/01/20 20:07 Trazodone Hcl 50 Mg Tablet PO 50 mg BEDTIME PRN Administration Insomnia Allergies Allergies Allergy/AdvReac Type Severity Reaction Status Date / Time No Known Allergies Allergy Verified 10/26/20 19:36 Assessment & Plan Assessment & Plan (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 Plan: Gather collateral information. Continue with the same treatment. (2) Dementia associated with other underlying disease with behavioral disturbance: Status: Acute Code(s): F02.81 - Dementia in other diseases classified elsewhere with behavioral disturbance Assessment and Plan: Plan: continue per treatment team Continue Aricept 10 mg po qhs Continue Vitamin B12 Start Namenda 5 mg po qam Vitamin B12 level is now normal. Greater than 50% of the session was spent on counseling and/or coordination of care Reason for contiued inpatient stay Substantial Risk for: inability to function, rapid decompensation and med/psych decompensation
[2020-11-02 17:46] VITALS: BP 134/62; PULSE 68; TEMP 36.4; O2SAT 96
[2020-11-02 19:54] VITALS: BP 150/69; PULSE 65
[2020-11-02] MEDS: hydrOXYzine HCL 25 MG TABLET PO (19:54)
[2020-11-02] MEDS: traZODone HCL 50 MG TABLET PO (19:54)
[2020-11-02] MEDS: Donepezil HCl 5 MG TABLET 10 MG PO (19:54)
[2020-11-03] MEDS: Levothyroxine Sodium 50 MCG TABLET PO (05:55)
[2020-11-03 06:00] VITALS: BP 119/62; PULSE 74; RESP 16; TEMP 36.6
[2020-11-03 09:11] VITALS: BP 122/64; PULSE 72
[2020-11-03] MEDS: Aspirin Enteric Coated 81 MG TABLET.DR PO (09:11)
[2020-11-03] MEDS: Memantine HCl 5 MG TABLET PO ×2 (09:11→21:40)
[2020-11-03] MEDS: Cyanocobalamin (Vitamin B-12) 1,000 MCG TABLET 1000 MCG PO (09:11)
[2020-11-03] MEDS: Metoprolol Tartrate 25 MG TABLET PO ×2 (09:11→21:39)
[2020-11-03 10:49] VITALS: BMI 25.1
--- NOTE | 2020-11-03 12:29 | HO.PSYCHPN ---
Subjective Subjective Date of Service: 11/03/20 Reason For Visit: Adjustment disorder w/ mixed disturbance of emotio Interim History: The patient has been pleasently confused, nursing staff has noticed increased confusion at sundown. Medication Compliance: Yes Mental Status Exam Mental Status Exam Patient Appearance: Well Grooomed Patient Orientation: Person and Place Level of Consciousness: Awake Patient Behavior: Cooperative and Sundowning Mood Description: Withdrawn Affect Description: Appropriate Patient Cognition Impaired: No Ability to Follow Directions: Good Speech Pattern: Clear Memory Description: Immediate Impaired and Recent Impaired Hallucinations: None Delusions: Not Present Thought Process: Distracted and Slowed Thinking Thought Content: positive for Poverty of Content Judgement: Poor Diagnostics Vital Signs (24Hr): Vital Signs - 24 hr 11/02/20 17:46 11/02/20 19:54 11/03/20 06:00 Temperature 97.6 F 97.9 F Pulse Rate 68 65 74 Respiratory Rate 16 Blood Pressure 134/62 150/69 H 119/62 Pulse Oximetry 96 11/03/20 09:11 Temperature Pulse Rate 72 Respiratory Rate Blood Pressure 122/64 Pulse Oximetry Body Mass Index 25.1 Labs Labs: Laboratory Results - last 48 hr 11/02/20 06:42 Vitamin B12 231 Medications Medications Current Medications Generic Name Dose Route Start Last Admin Trade Name Freq PRN Reason Stop Dose Admin Acetaminophen 650 mg 10/26/20 20:10 11/02/20 08:22 Acetaminophen 325 Mg Tablet PO 650 mg Q6H PRN Administration Headache/Pain Mild Scale (1-3) Al Hydroxide/Mg Hydroxide 30 ml 10/26/20 20:10 Magnesium Hydrox/Alum Hydrox 30 Ml Oral.Susp PO Q6H PRN Heartburn/Nausea Aspirin 81 mg 10/27/20 09:00 11/03/20 09:11 Aspirin Enteric Coated 81 Mg Tablet. PO 81 mg DAILY SILAS Administration Cyanocobalamin 1,000 mcg 10/28/20 09:00 11/03/20 09:11 Cyanocobalamin (Vitamin B-12) 1,000 Mcg Tablet PO 1,000 mcg DAILY SILAS Administration Donepezil HCl 10 mg 10/31/20 21:00 11/02/20 19:54 Donepezil Hcl 5 Mg Tablet PO 10 mg BEDTIME SILAS Administration Hydroxyzine HCl 25 mg 10/26/20 20:10 11/02/20 19:54 Hydroxyzine Hcl 25 Mg Tablet PO 25 mg BEDTIME PRN Administration Anxiety Levothyroxine Sodium 50 mcg 10/27/20 06:00 11/03/20 05:55 Levothyroxine Sodium 50 Mcg Tablet PO 50 mcg DAILY@0600 SIL[facility] Administration Magnesium Hydroxide 30 ml 10/26/20 20:10 Milk Of Magnesia 30 Ml Oral.Susp PO DAILY PRN Constipation Memantine 5 mg 11/02/20 09:00 11/03/20 09:11 Memantine Hcl 5 Mg Tablet PO 5 mg DAILY SILAS Administration Metoprolol Tartrate 25 mg 10/26/20 21:00 11/03/20 09:11 Metoprolol Tartrate 25 Mg Tablet PO 25 mg BID SILAS Administration Protocol Trazodone HCl 50 mg 10/26/20 20:10 11/02/20 19:54 Trazodone Hcl 50 Mg Tablet PO 50 mg BEDTIME PRN Administration Insomnia Allergies Allergies Allergy/AdvReac Type Severity Reaction Status Date / Time No Known Allergies Allergy Verified 10/26/20 19:36 Assessment & Plan Assessment & Plan (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 Plan: Gather collateral information. Continue with the same treatment. (2) Dementia associated with other underlying disease with behavioral disturbance: Status: Acute Code(s): F02.81 - Dementia in other diseases classified elsewhere with behavioral disturbance Assessment and Plan: Plan: continue per treatment team Continue Aricept 10 mg po qhs Continue Vitamin B12 Increase Namenda 5 mg po bid Vitamin B12 level is now normal. Greater than 50% of the session was spent on counseling and/or coordination of care Reason for contiued inpatient stay Substantial Risk for: inability to function, rapid decompensation and med/psych decompensation
--- NOTE | 2020-11-03 14:28 | PC.NURSE ---
Pt. scored a 12/30 on the MOCA. Therefore, pt. is outside normal limits for pt.'s age and education status. MD and RN have been notified of results.
[2020-11-03 18:00] VITALS: BP 118/59; PULSE 68; RESP 18; TEMP 36.9; O2SAT 97
[2020-11-03 21:39] VITALS: BP 155/67; PULSE 63
[2020-11-03] MEDS: Donepezil HCl 5 MG TABLET 10 MG PO (21:39)
[2020-11-04] MEDS: Acetaminophen 325 MG TABLET 650 MG PO ×2 (05:43→20:23)
[2020-11-04] MEDS: Levothyroxine Sodium 50 MCG TABLET PO (05:45)
[2020-11-04 06:00] VITALS: BP 130/56; PULSE 65; RESP 14; TEMP 36.2; O2SAT 96
[2020-11-04] MEDS: Aspirin Enteric Coated 81 MG TABLET.DR PO (07:55)
[2020-11-04] MEDS: Cyanocobalamin (Vitamin B-12) 1,000 MCG TABLET 1000 MCG PO (07:55)
[2020-11-04 07:56] VITALS: BP 108/56; PULSE 64
[2020-11-04] MEDS: Memantine HCl 5 MG TABLET PO (07:56)
[2020-11-04] MEDS: Metoprolol Tartrate 25 MG TABLET PO ×2 (07:56→20:18)
--- NOTE | 2020-11-04 13:05 | HO.PSYCHPN ---
Subjective Subjective Date of Service: 11/04/20 Reason For Visit: Adjustment disorder w/ mixed disturbance of emotio Interim History: The patient remains pleasently confused. MOCA done and she scored only 12/30. Her mood is more stable but she needs constant supervision by staff for ADLs Medication Compliance: Yes Review of Systems Review of Systems Yes all other systems are reviewed and are negative Mental Status Exam Mental Status Exam Patient Appearance: Disheveled Patient Orientation: Person Level of Consciousness: Awake Patient Behavior: Appropriate Mood Description: Cheerful Affect Description: Labile Patient Cognition Impaired: Yes Ability to Follow Directions: Good Speech Pattern: Clear Memory Description: Remote Impaired, Immediate Impaired and Working Impaired Hallucinations: None Delusions: Not Present Thought Process: Slowed Thinking Thought Content: positive for Poverty of Content Judgement: Fair Diagnostics Vital Signs (24Hr): Vital Signs - 24 hr 11/03/20 18:00 11/03/20 21:39 11/04/20 06:00 Temperature 98.4 F 97.1 F Pulse Rate 68 63 65 Respiratory Rate 18 14 Blood Pressure 118/59 L 155/67 H 130/56 L Pulse Oximetry 97 96 11/04/20 07:56 Temperature Pulse Rate 64 Respiratory Rate Blood Pressure 108/56 L Pulse Oximetry Body Mass Index 25.1 Medications Medications Current Medications Generic Name Dose Route Start Last Admin Trade Name Freq PRN Reason Stop Dose Admin Acetaminophen 650 mg 10/26/20 20:10 11/04/20 05:43 Acetaminophen 325 Mg Tablet PO 650 mg Q6H PRN Administration Headache/Pain Mild Scale (1-3) Al Hydroxide/Mg Hydroxide 30 ml 10/26/20 20:10 Magnesium Hydrox/Alum Hydrox 30 Ml Oral.Susp PO Q6H PRN Heartburn/Nausea Aspirin 81 mg 10/27/20 09:00 11/04/20 07:55 Aspirin Enteric Coated 81 Mg Tablet. PO 81 mg DAILY SILAS Administration Cyanocobalamin 1,000 mcg 10/28/20 09:00 11/04/20 07:55 Cyanocobalamin (Vitamin B-12) 1,000 Mcg Tablet PO 1,000 mcg DAILY SILAS Administration Donepezil HCl 10 mg 10/31/20 21:00 11/03/20 21:39 Donepezil Hcl 5 Mg Tablet PO 10 mg BEDTIME SILSA Administration Hydroxyzine HCl 25 mg 10/26/20 20:10 11/02/20 19:54 Hydroxyzine Hcl 25 Mg Tablet PO 25 mg BEDTIME PRN Administration Anxiety Levothyroxine Sodium 50 mcg 10/27/20 06:00 11/04/20 05:45 Levothyroxine Sodium 50 Mcg Tablet PO 50 mcg DAILY@0600 SILAS Administration Magnesium Hydroxide 30 ml 10/26/20 20:10 Milk Of Magnesia 30 Ml Oral.Susp PO DAILY PRN Constipation Memantine 5 mg 11/03/20 21:00 11/04/20 07:56 Memantine Hcl 5 Mg Tablet PO 5 mg BID SILAS Administration Metoprolol Tartrate 25 mg 10/26/20 21:00 11/04/20 07:56 Metoprolol Tartrate 25 Mg Tablet PO 25 mg BID SILAS Administration Protocol Trazodone HCl 50 mg 10/26/20 20:10 11/02/20 19:54 Trazodone Hcl 50 Mg Tablet PO 50 mg BEDTIME PRN Administration Insomnia Allergies Allergies Allergy/AdvReac Type Severity Reaction Status Date / Time No Known Allergies Allergy Verified 10/26/20 19:36 Assessment & Plan Assessment & Plan (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 Plan: Gather collateral information. Continue with the same treatment. (2) Dementia associated with other underlying disease with behavioral disturbance: Status: Acute Code(s): F02.81 - Dementia in other diseases classified elsewhere with behavioral disturbance Assessment and Plan: Plan: continue per treatment team Continue Aricept 10 mg po qhs Continue Vitamin B12 Increase Namenda up to 10 mg po bid Vitamin B12 level is now normal. Greater than 50% of the session was spent on counseling and/or coordination of care Reason for contiued inpatient stay Substantial Risk for: inability to function, rapid decompensation and med/psych decompensation
[2020-11-04 18:00] VITALS: BP 112/55; PULSE 71; TEMP 36.6; O2SAT 98
[2020-11-04 20:18] VITALS: BP 118/56; PULSE 70
[2020-11-04] MEDS: Memantine HCl 10 MG TABLET PO (20:18)
[2020-11-04] MEDS: Donepezil HCl 5 MG TABLET 10 MG PO (20:18)
[2020-11-04] MEDS: traZODone HCL 50 MG TABLET PO (22:04)
[2020-11-05] MEDS: Levothyroxine Sodium 50 MCG TABLET PO (06:10)
[2020-11-05 08:26] VITALS: BP 119/57; PULSE 68; TEMP 36.7; O2SAT 98
[2020-11-05] MEDS: Aspirin Enteric Coated 81 MG TABLET.DR PO (08:36)
[2020-11-05] MEDS: Acetaminophen 325 MG TABLET 650 MG PO ×2 (08:36→23:07)
[2020-11-05] MEDS: Memantine HCl 10 MG TABLET PO ×2 (08:37→19:40)
[2020-11-05] MEDS: Cyanocobalamin (Vitamin B-12) 1,000 MCG TABLET 1000 MCG PO (08:37)
[2020-11-05 08:39] VITALS: BP 119/57; PULSE 68
[2020-11-05] MEDS: Metoprolol Tartrate 25 MG TABLET PO ×2 (08:39→19:40)
--- NOTE | 2020-11-05 09:55 | HO.PSYCHPN ---
Subjective Subjective Date of Service: 11/05/20 Reason For Visit: Adjustment disorder w/ mixed disturbance of emotio Interim History: pt reports sleeping, eating, toileting well. 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 suggests a topical for her arthritic knee pain, about which she is very enthusiastic. no other complaints or requests. per staff, likely early dementia, pleasantly confused. Mental Status Exam Mental Status Exam Narrative: appropriately dressed and groomed. no PMA/PMR. cooperative with interview. speech nml in rate, amount, loudness, tone, and latency. thoughts linear and logical. affect full range, normo-intense, non-labile. mood up. no SI/HI/AVH expressed. Diagnostics Vital Signs (24Hr): Vital Signs - 24 hr 11/04/20 18:00 11/04/20 20:18 11/05/20 08:26 Temperature 98 F 98.1 F Pulse Rate 71 70 68 Blood Pressure 112/55 L 118/56 L 119/57 L Pulse Oximetry 98 98 11/05/20 08:39 Temperature Pulse Rate 68 Blood Pressure 119/57 L Pulse Oximetry Body Mass Index 25.1 Medications Medications Current Medications Generic Name Dose Route Start Last Admin Trade Name Freq PRN Reason Stop Dose Admin Acetaminophen 650 mg 10/26/20 20:10 11/05/20 08:36 Acetaminophen 325 Mg Tablet PO 650 mg Q6H PRN Administration Headache/Pain Mild Scale (1-3) Al Hydroxide/Mg Hydroxide 30 ml 10/26/20 20:10 Magnesium Hydrox/Alum Hydrox 30 Ml Oral.Susp PO Q6H PRN Heartburn/Nausea Aspirin 81 mg 10/27/20 09:00 11/05/20 08:36 Aspirin Enteric Coated 81 Mg Tablet. PO 81 mg DAILY SILAS Administration Cyanocobalamin 1,000 mcg 10/28/20 09:00 11/05/20 08:37 Cyanocobalamin (Vitamin B-12) 1,000 Mcg Tablet PO 1,000 mcg DAILY SILAS Administration Donepezil HCl 10 mg 10/31/20 21:00 11/04/20 20:18 Donepezil Hcl 5 Mg Tablet PO 10 mg BEDTIME SILAS Administration Hydroxyzine HCl 25 mg 10/26/20 20:10 11/02/20 19:54 Hydroxyzine Hcl 25 Mg Tablet PO 25 mg BEDTIME PRN Administration Anxiety Levothyroxine Sodium 50 mcg 10/27/20 06:00 11/05/20 06:10 Levothyroxine Sodium 50 Mcg Tablet PO 50 mcg DAILY@0600 SILAS Administration Magnesium Hydroxide 30 ml 10/26/20 20:10 Milk Of Magnesia 30 Ml Oral.Susp PO DAILY PRN Constipation Memantine 10 mg 11/04/20 21:00 11/05/20 08:37 Memantine Hcl 10 Mg Tablet PO 10 mg BID SILAS Administration Metoprolol Tartrate 25 mg 10/26/20 21:00 11/05/20 08:39 Metoprolol Tartrate 25 Mg Tablet PO 25 mg BID SILAS Administration Protocol Trazodone HCl 50 mg 10/26/20 20:10 11/04/20 22:04 Trazodone Hcl 50 Mg Tablet PO 50 mg BEDTIME PRN Administration Insomnia Trolamine Salicylate/Aloe Vera 1 appl 11/05/20 09:52 Trolamine Salicylate 10%/Aloe Cream 35.4 Gm TOPICAL QID PRN arthritis Allergies Allergies Allergy/AdvReac Type Severity Reaction Status Date / Time No Known Allergies Allergy Verified 10/26/20 19:36 Assessment & Plan Assessment & Plan (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 Plan: Gather collateral information. Continue with the same treatment. (2) Dementia associated with other underlying disease with behavioral disturbance: Status: Acute Code(s): F02.81 - Dementia in other diseases classified elsewhere with behavioral disturbance Assessment and Plan: Plan: continue per treatment team Continue Aricept 10 mg po qhs Continue Vitamin B12 Increase Namenda up to 10 mg po bid Vitamin B12 level is now normal. added aspercreme to knees B/L for arthritic pain. Greater than 50% of the session was spent on counseling and/or coordination of care Reason for contiued inpatient stay Substantial Risk for: inability to function and rapid decompensation
[2020-11-05 18:30] VITALS: BP 127/60; PULSE 67; RESP 16; TEMP 36.8; O2SAT 95
[2020-11-05 19:40] VITALS: BP 127/60; PULSE 64
[2020-11-05] MEDS: Donepezil HCl 5 MG TABLET 10 MG PO (19:41)
[2020-11-06] VITALS (7 sets, daily range): BP systolic 112–160; BP diastolic 54–70; PULSE 68–73; RESP 16–20; TEMP 36.4–37.6; O2SAT 97–98
[2020-11-06] MEDS: hydrOXYzine HCL 25 MG TABLET PO ×2 (03:33→19:36)
[2020-11-06] MEDS: Levothyroxine Sodium 50 MCG TABLET PO (06:15)
[2020-11-06] MEDS: Metoprolol Tartrate 25 MG TABLET PO ×2 (07:48→19:35)
[2020-11-06] MEDS: Cyanocobalamin (Vitamin B-12) 1,000 MCG TABLET 1000 MCG PO (07:48)
[2020-11-06] MEDS: Aspirin Enteric Coated 81 MG TABLET.DR PO (07:48)
[2020-11-06] MEDS: Memantine HCl 10 MG TABLET PO ×2 (07:51→19:36)
--- NOTE | 2020-11-06 12:06 | HO.PSYCHPN ---
Subjective Subjective Date of Service: 11/06/20 Reason For Visit: Adjustment disorder w/ mixed disturbance of emotio Interim History: pt expresses anxiety about an appointment she has with a doctor. MD asks about it, and she says for tomorrow, with Dr Roth. she doesn't know where the appointment is or what time it is. MD reassures her that she need not worry, that Dr. Roth will be seeing here here on the unit on Saturday, so there is no need to worry about time or place. she appears reassured in the moment. she also does not recall having met this check writer salesperson yesterday. no other complaints or requests. per staff, no change from yesterday. Mental Status Exam Mental Status Exam Narrative: appropriately dressed and groomed. no PMA/PMR. cooperative with interview. speech nml in rate, amount, loudness, tone, and latency. thoughts linear and logical. affect full range, normo-intense, non-labile. no SI/HI/AVH expressed. clearly cognitively impaired in terms of memory. Diagnostics Vital Signs (24Hr): Vital Signs - 24 hr 11/05/20 18:30 11/05/20 19:40 11/06/20 06:00 Temperature 98.2 F 97.6 F Pulse Rate 67 64 68 Respiratory Rate 16 16 Blood Pressure 127/60 127/60 158/70 H Pulse Oximetry 95 98 11/06/20 07:48 Temperature Pulse Rate 68 Respiratory Rate Blood Pressure 118/58 L Pulse Oximetry Body Mass Index 25.1 Medications Medications Current Medications Generic Name Dose Route Start Last Admin Trade Name Freq PRN Reason Stop Dose Admin Acetaminophen 650 mg 10/26/20 20:10 11/05/20 23:07 Acetaminophen 325 Mg Tablet PO 650 mg Q6H PRN Administration Headache/Pain Mild Scale (1-3) Al Hydroxide/Mg Hydroxide 30 ml 10/26/20 20:10 Magnesium Hydrox/Alum Hydrox 30 Ml Oral.Susp PO Q6H PRN Heartburn/Nausea Aspirin 81 mg 10/27/20 09:00 11/06/20 07:48 Aspirin Enteric Coated 81 Mg Tablet. PO 81 mg DAILY SILAS Administration Cyanocobalamin 1,000 mcg 10/28/20 09:00 11/06/20 07:48 Cyanocobalamin (Vitamin B-12) 1,000 Mcg Tablet PO 1,000 mcg DAILY SILAS Administration Donepezil HCl 10 mg 10/31/20 21:00 11/05/20 19:41 Donepezil Hcl 5 Mg Tablet PO 10 mg BEDTIME SILAS Administration Hydroxyzine HCl 25 mg 10/26/20 20:10 11/06/20 03:33 Hydroxyzine Hcl 25 Mg Tablet PO 25 mg BEDTIME PRN Administration Anxiety Levothyroxine Sodium 50 mcg 10/27/20 06:00 11/06/20 06:15 Levothyroxine Sodium 50 Mcg Tablet PO 50 mcg DAILY@0600 SILAS Administration Magnesium Hydroxide 30 ml 10/26/20 20:10 Milk Of Magnesia 30 Ml Oral.Susp PO DAILY PRN Constipation Memantine 10 mg 11/04/20 21:00 11/06/20 07:51 Memantine Hcl 10 Mg Tablet PO 10 mg BID SILAS Administration Metoprolol Tartrate 25 mg 10/26/20 21:00 11/06/20 07:48 Metoprolol Tartrate 25 Mg Tablet PO 25 mg BID SILAS Administration Protocol Trazodone HCl 50 mg 10/26/20 20:10 11/04/20 22:04 Trazodone Hcl 50 Mg Tablet PO 50 mg BEDTIME PRN Administration Insomnia Trolamine Salicylate/Aloe Vera 1 appl 11/05/20 09:52 11/06/20 09:38 Trolamine Salicylate 10%/Aloe Cream 35.4 Gm TOPICAL 1 appl QID PRN Administration arthritis Allergies Allergies Allergy/AdvReac Type Severity Reaction Status Date / Time No Known Allergies Allergy Verified 10/26/20 19:36 Assessment & Plan Assessment & Plan (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 Plan: Gather collateral information. Continue with the same treatment. (2) Dementia associated with other underlying disease with behavioral disturbance: Status: Acute Code(s): F02.81 - Dementia in other diseases classified elsewhere with behavioral disturbance Assessment and Plan: Plan: continue per treatment team Continue Aricept 10 mg po qhs Continue Vitamin B12 Increased Namenda up to 10 mg po bid Vitamin B12 level is now normal. added aspercreme to knees B/L for arthritic pain. Greater than 50% of the session was spent on counseling and/or coordination of care Reason for contiued inpatient stay Substantial Risk for: inability to function
[2020-11-06] MEDS: Acetaminophen 325 MG TABLET 650 MG PO (18:26)
[2020-11-06] MEDS: Donepezil HCl 5 MG TABLET 10 MG PO (19:35)
[2020-11-06] MEDS: traZODone HCL 50 MG TABLET PO (19:36)
[2020-11-07] MEDS: Levothyroxine Sodium 50 MCG TABLET PO (05:18)
[2020-11-07] MEDS: Acetaminophen 325 MG TABLET 650 MG PO (05:19)
[2020-11-07 05:28] VITALS: BP 144/78; PULSE 80; RESP 18; TEMP 36.6; O2SAT 96
[2020-11-07 08:18] VITALS: BP 110/54; PULSE 71; RESP 18; TEMP 36.5; O2SAT 98
[2020-11-07] MEDS: Cyanocobalamin (Vitamin B-12) 1,000 MCG TABLET 1000 MCG PO (08:21)
[2020-11-07] MEDS: Memantine HCl 10 MG TABLET PO ×2 (08:21→20:34)
[2020-11-07] MEDS: Aspirin Enteric Coated 81 MG TABLET.DR PO (08:21)
[2020-11-07 09:20] VITALS: BP 131/63; PULSE 71; RESP 18; O2SAT 97
--- NOTE | 2020-11-07 11:05 | P.PNPSI_ITS ---
Subjective Subjective Date of Service: 11/07/20 Reason For Visit: Adjustment disorder w/ mixed disturbance of emotio Interim History: pt does not recall having met this development writer yesterday: who are you? pleasant, c/o legs cramping. thinks she needs exercise, encouraged to walk the halls, which she states she will do. no other complaints or requests. per staff, no change from yesterday. Mental Status Exam Mental Status Exam Narrative: appropriately dressed and groomed. no PMA/PMR. cooperative with interview. speech nml in rate, amount, loudness, tone, and latency. thoughts linear and logical. affect full range, normo-intense, non-labile. no SI/HI/AVH expressed. clearly cognitively impaired in terms of memory. Diagnostics Vital Signs (24Hr): Vital Signs - 24 hr 11/06/20 17:26 11/06/20 17:33 11/06/20 19:32 Temperature 99.6 F 97.9 F 97.5 F Pulse Rate 73 71 Respiratory Rate 18 20 Blood Pressure 112/54 L 160/66 H Pulse Oximetry 97 98 11/06/20 19:35 11/06/20 19:39 11/07/20 05:28 Temperature 97.5 F 97.8 F Pulse Rate 71 71 80 Respiratory Rate 20 18 Blood Pressure 160/66 H 160/66 H 144/78 H Pulse Oximetry 96 11/07/20 08:18 11/07/20 09:20 Temperature 97.7 F Pulse Rate 71 71 Respiratory Rate 18 18 Blood Pressure 110/54 L 131/63 Pulse Oximetry 98 97 Body Mass Index 25.1 Medications Medications Current Medications Generic Name Dose Route Start Last Admin Trade Name Freq PRN Reason Stop Dose Admin Acetaminophen 650 mg 10/26/20 20:10 11/07/20 05:19 Acetaminophen 325 Mg Tablet PO 650 mg Q6H PRN Administration Headache/Pain Mild Scale (1-3) Al Hydroxide/Mg Hydroxide 30 ml 10/26/20 20:10 Magnesium Hydrox/Alum Hydrox 30 Ml Oral.Susp PO Q6H PRN Heartburn/Nausea Aspirin 81 mg 10/27/20 09:00 11/07/20 08:21 Aspirin Enteric Coated 81 Mg Tablet. PO 81 mg DAILY SILAS Administration Cyanocobalamin 1,000 mcg 10/28/20 09:00 11/07/20 08:21 Cyanocobalamin (Vitamin B-12) 1,000 Mcg Tablet PO 1,000 mcg DAILY SILAS Administration Donepezil HCl 10 mg 10/31/20 21:00 11/06/20 19:35 Donepezil Hcl 5 Mg Tablet PO 10 mg BEDTIME SILAS Administration Hydroxyzine HCl 25 mg 10/26/20 20:10 11/06/20 19:36 Hydroxyzine Hcl 25 Mg Tablet PO 25 mg BEDTIME PRN Administration Anxiety Levothyroxine Sodium 50 mcg 10/27/20 06:00 11/07/20 05:18 Levothyroxine Sodium 50 Mcg Tablet PO 50 mcg DAILY@0600 SILAS Administration Magnesium Hydroxide 30 ml 10/26/20 20:10 Milk Of Magnesia 30 Ml Oral.Susp PO DAILY PRN Constipation Memantine 10 mg 11/04/20 21:00 11/07/20 08:21 Memantine Hcl 10 Mg Tablet PO 10 mg BID SILAS Administration Metoprolol Tartrate 25 mg 10/26/20 21:00 11/06/20 19:35 Metoprolol Tartrate 25 Mg Tablet PO 25 mg BID SILAS Administration Protocol Trazodone HCl 50 mg 10/26/20 20:10 11/06/20 19:36 Trazodone Hcl 50 Mg Tablet PO 50 mg BEDTIME PRN Administration Insomnia Trolamine Salicylate/Aloe Vera 1 appl 11/05/20 09:52 11/07/20 04:49 Trolamine Salicylate 10%/Aloe Cream 35.4 Gm TOPICAL 1 appl QID PRN Administration arthritis Allergies Allergies Allergy/AdvReac Type Severity Reaction Status Date / Time No Known Allergies Allergy Verified 10/26/20 19:36 Assessment & Plan Assessment & Plan (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 Plan: Gather collateral information. Continue with the same treatment. (2) Dementia associated with other underlying disease with behavioral disturbance: Status: Acute Code(s): F02.81 - Dementia in other diseases classified elsewhere with behavioral disturbance Assessment and Plan: Plan: continue per treatment team Continue Aricept 10 mg po qhs Continue Vitamin B12 Increased Namenda up to 10 mg po bid Vitamin B12 level is now normal. added aspercreme to knees B/L for arthritic pain. Greater than 50% of the session was spent on counseling and/or coordination of care Reason for contiued inpatient stay Substantial Risk for: inability to function
[2020-11-07 11:49] VITALS: BP 110/54
[2020-11-07 18:12] VITALS: BP 124/58; PULSE 84; RESP 18; TEMP 37.1; O2SAT 98
[2020-11-07 20:34] VITALS: BP 137/63; PULSE 77
[2020-11-07] MEDS: Metoprolol Tartrate 25 MG TABLET PO (20:34)
[2020-11-07] MEDS: Donepezil HCl 5 MG TABLET 10 MG PO (20:34)
[2020-11-08] MEDS: traZODone HCL 50 MG TABLET PO (00:53)
[2020-11-08] MEDS: hydrOXYzine HCL 25 MG TABLET PO (00:53)
[2020-11-08 06:00] VITALS: BP 163/65; PULSE 72; RESP 16; TEMP 36.7; O2SAT 95
[2020-11-08] MEDS: Levothyroxine Sodium 50 MCG TABLET PO (06:13)
[2020-11-08 08:33] VITALS: BP 113/52; PULSE 69
[2020-11-08] MEDS: Metoprolol Tartrate 25 MG TABLET PO (08:33)
[2020-11-08] MEDS: Cyanocobalamin (Vitamin B-12) 1,000 MCG TABLET 1000 MCG PO (08:34)
[2020-11-08] MEDS: Memantine HCl 10 MG TABLET PO (08:34)
[2020-11-08] MEDS: Aspirin Enteric Coated 81 MG TABLET.DR PO (08:34)
--- NOTE | 2020-11-08 10:42 | PM.PSYDC ---
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: Status: Acute (2) Dementia associated with other underlying disease with behavioral disturbance: Status: Acute Discharge Plan Discharge Patient Disposition: Home, Self-Care Discharge Diagnosis: Mood disorder due to known physiological condition Dementia Referrals: Physician,Unknown [Primary Care Provider] - 1 Week Discharge Medications: New donepezil 5 mg Tablet 10 mg PO BEDTIME 30 Days Qty: 60 RF: 0 trazodone 50 mg Tablet 50 mg PO BEDTIME PRN (Reason: Insomnia) 30 Days Qty: 30 RF: 0 cyanocobalamin (vitamin B-12) [Vitamin B-12] 1,000 mcg Tablet 1,000 mcg PO DAILY 30 Days Qty: 30 RF: 0 aspirin 81 mg Tablet,Delayed Release (Dr/Ec) 81 mg PO DAILY 30 Days Qty: 30 RF: 0 levothyroxine 50 mcg Tablet 50 mcg PO DAILY@0600 30 Days Qty: 30 RF: 0 memantine [Namenda] 10 mg Tablet 10 mg PO BID 30 Days Qty: 60 RF: 0 metoprolol tartrate 25 mg Tablet 25 mg PO BID 30 Days Qty: 60 RF: 0 Discharge Orders: Discharge Order (Routine); Ordered 11/08/20 Ordered By: Tripp Roth Diet: advance to usual diet Activity on Discharge: As tolerated Stand Alone Forms: Patient Portal Discharge page Care Plan Goals: Continue with Care Plan Goals of ED as an outpatient with psychotherpay and medication management Health Concerns: F/U with PCP regarding hypothyroidism Plan of Treatment: Medication management by psychiatric provider Psychotherapy Assessment: Elderly female with dementia and recent onset of increased confusion and suicidality that lead her to inpatient care. No current safety concerns. Mental Status Exam Mental Status Exam Patient Appearance: Appropriate Patient Orientation: Person and Place Level of Consciousness: Awake Patient Behavior: Cooperative Mood Description: Calm Affect Description: Constricted Patient Cognition Impaired: Yes Ability to Follow Directions: Good Speech Pattern: Clear Memory Description: Immediate Impaired and Recent Impaired Hallucinations: None Delusions: Not Present Thought Process: Slowed Thinking Thought Content: positive for Poverty of Content Judgement: Fair Data Data Completed and Pending Completed studies during hospitalization [Text1]: 11/02/20 06:42 Vitamin B12 231 10/26/20 20:51 Urine clean catch - Clean Catch Midstream Urine Culture - Final DS: Summary Hospital Course Hospital Course: The patient was initially admitted since her and the police brought her to the ED due to erratic behavior, with suicidal statements. She was wondering in the neighborhood and she was confused and erratic. She was assessed on the ED and she had a UTI. She was admitted at the geriatric psychiatric unit for treatment. Initially, she was very confused and unable to participate on the unit's activities. Her UTI was treated and her mood cleared very fast but she remained pleasantly confused. We started Aricept and later added Namenda to target her dementia since her MOCA was 05/04. We did the work-out and she was positive to low Vitamin B12 that we replaced but her memory was still poor. We didn't add any antidepressant since after the treatment of the UTI, her mood improved. She was able to participate on the unit's activity and discharge planning was discussed. Adult Protective Services has been notified and continuation of care arranged. Time spent discussing smoking cessation with patient: 3 to 10 minutes Status at Discharge Functional status at discharge: independent ambulation Overall status at discharge: patient is back to baseline Time Spent with Patient Time attestation: Total time spent providing and/or coordinating discharge services: Time spent: Less than 30 minutes
== END 2020-11-08 11:54 | disposition home or self-care (01) | DRG 884 ==
PROVIDERS: Social Worker; Admitting Provider Psychiatry & Neurology Psychiatry; Visit Provider Psychiatry & Neurology Psychiatry
DX: F06.30 Mood disorder due to known physiological condition, unspecified (principal); R45.851 Suicidal ideations; N39.0 Urinary tract infection, site not specified; F03.91 Unspecified dementia, unspecified severity, with behavioral disturbance; F06.8 Other specified mental disorders due to known physiological condition; Z91.83 Wandering in diseases classified elsewhere; E53.8 Deficiency of other specified B group vitamins; Z79.82 Long term (current) use of aspirin; Z79.890 Hormone replacement therapy; Z79.899 Other long term (current) drug therapy
CPT/HCPCS: 36415; 80061; 80307; 82607; 82746; 83036; 84443; 87086